=== PATIENT | male | born 1970 | race Caucasian/White ===

== ENCOUNTER 2017-10-22 10:39 | Emergency (ER) | payer OTHER ==
[~2017-10-22] VITALS: Ht 167.6 cm; Wt 70.3 kg
[~2017-10-22 10:39] MED LIST: NOR10T PO
[2017-10-22 10:45] VITALS: BP 136/93
[2017-10-22] MEDS ORDERED: HYDROcodone-ACET 10/325MG TAB PO ONE (13:30)
== END 2017-10-22 14:15 | disposition home or self-care (01) ==
LOC: ER 10:39
DX: S09.90XD Unspecified injury of head, subsequent encounter (principal); F17.210 Nicotine dependence, cigarettes, uncomplicated; Z76.0 Encounter for issue of repeat prescription; Z87.11 Personal history of peptic ulcer disease; Z88.5 Allergy status to narcotic agent; Z79.891 Long term (current) use of opiate analgesic; W17.89XD Other fall from one level to another, subsequent encounter; Y93.89 Activity, other specified; Y99.8 Other external cause status; Y92.89 Other specified places as the place of occurrence of the external cause